=== PATIENT | female | born 1960 ===

== ENCOUNTER 2017-04-01 09:10 | Day surgery (SDC) | payer BC ==
[2017-03-29 09:44] VITALS: BMI 32.1
[2017-04-01] MEDS ORDERED: Propofol 10 mg/ml Inj (20 ML) ONE (11:42)
[2017-04-01] MEDS ORDERED: Midazolam 2 MG/2 ML VIAL ONE (11:42)
[2017-04-01] MEDS ORDERED: Lactated Ringer's 1,000 ML IV ONE (11:48)
--- NOTE | 2017-04-01 12:19 | PCM.SURG1 ---
Surgeon's Initial Post Op Note - Surgeon's Notes Surgeon: Dr. Lucas Co Op: None Type of Anesthesia: General LMA Anesthesia Administered By: Dr. Ríos Pre-Operative Diagnosis: 57 yo with Chronic pelvic pain , Fibroid uterus Operative Findings: Av uterus 20 wks gestation , stenotic os , Post-Operative Diagnosis: Stenotic os Operation Performed: EUA, Attempted hysteroscopy, Stenotic os , Fractional D and C Specimen/Specimens Removed: Stenotic os NO emc, ecc Estimated Blood Loss: EBL {In ML}: 1 Blood Products Given: N/A Drains Used: No Drains Post-Op Condition: Good Date of Surgery/Procedure: 04/01/17 Time of Surgery/Procedure: 12:19
[2017-04-01 13:32] VITALS: RESP 16
[2017-04-01 14:16] VITALS: BP 136/50; PULSE 81; TEMP 97.5; O2SAT 99
--- NOTE | 2017-04-02 01:10 | OP ---
PROCEDURE DATE: 04/01/2017 PREOPERATIVE DIAGNOSIS: A 57-year-old female with fibroid uterus and chronic pelvic pain. POSTOPERATIVE DIAGNOSES: A 57-year-old female with fibroid uterus and chronic pelvic pain, with an additional finding of stenotic os. PROCEDURE: Fractional dilatation and curettage, attempted hysteroscopy, and exam under anesthesia. SURGEON: Victoria Lucas MD ANESTHESIOLOGIST: Latisha Combs MD TYPE OF ANESTHESIA: General LMA. FINDINGS: An anteverted uterus, approximately 26 weeks' gestation, noted to have a stenotic os. Due to the stenotic os, no endometrial tissue was able to be obtained. COMPLICATIONS: None. ESTIMATED BLOOD LOSS: 5 mL. URINE OUTPUT: By straight catheter was 50 mL. SPECIMEN: ECC. DESCRIPTION OF PROCEDURE: The patient was informed of the risk factors, benefits, and alternatives of the procedure. Risk factors included infection, bleeding, damage to the surrounding organs and tissues, complication from anesthesia, and possible . After informed consent was obtained, she was then taken to the operating room, prepped and draped in normal sterile fashion, placed in dorsal lithotomy position. A weighted speculum was placed into the vagina. The anterior lip of the cervix was grasped with a single-toothed tenaculum. It was noted that she had a stenotic os, and several attempts were made with the dilator, but due to the stenotic os, endometrial tissue was not able to be performed. The examination under anesthesia demonstrated like a very low uterine fibroids. The uterus was deviated to the left side, which was approximately 26 weeks. An ECC was then performed. Endometrial tissue was obtained, but due to the stenotic os, was not able to go inside the cavity. Upon completion, all instruments were removed from the vagina. Instrument and lap count were correct x2. The patient was then taken to recovery room in stable condition. Victoria Lucas MD
== END 2017-04-01 12:27 | disposition home or self-care (01) ==
LOC: C.SDS 09:10
PROVIDERS: ATTEND Obstetrics & Gynecology
DX: D25.9 Leiomyoma of uterus, unspecified (principal); N88.2 Stricture and stenosis of cervix uteri
CPT/HCPCS: 58120; 88305; J2250; J2405; J2704; J3010; J7120